=== PATIENT | female | born 1975 | race Caucasian/White ===

== ENCOUNTER → 2016-04-27 | Outpatient (CLI) | payer OTHER ==
--- NOTE | 2016-04-27 12:28 | MA ---
Screening Digital Mammogram With Tomosynthesis Clinical Indications: Routine screening. Technique: Standard digital cephalocaudal and tomosynthesis mediolateral oblique projections are obt ained. The digital images were processed by the [employer] computer aided detection system. Comparison: March 2015, August 2013, January 2011 Breast density: B; There are scattered fibroglandular densities. Findings: CAD was reviewed. Developing density upper, slightly outer left breast, seen only on the ob lique lateral view, behind the mid left pectoral muscle shadow. The remainder of the left and right b reast are stable. Impression: Developing density upper left breast. Recommendation: Diagnostic mammogram with spot compression views. If persistent, attempt to localize in the orthogonal plane mammographically, and then proceed to ultrasound, for further characterizati on and localization purposes. BI-RADS 0. Additional imaging left breast required [facility] will send a result letter to the patient. Negative mammography should not preclude additional workup of a clinically suspicious finding. The patient's information is entered into a reminder system with a target due date for her next mammo gram.
== END ==
LOC: FIMAGING 10:10
DX: Z12.31 Encounter for screening mammogram for malignant neoplasm of breast (principal); R92.8 Other abnormal and inconclusive findings on diagnostic imaging of breast
CPT/HCPCS: G0202